=== PATIENT | female | born 1970 | race Caucasian/White ===

== ENCOUNTER 2019-06-27 19:58 | Emergency (ER) | payer OTHER ==
[2019-06-27 20:21] VITALS: BP 131/87
[2019-06-27] MEDS ORDERED: Sulfamethox/Trimethoprim DS 800/160* TAB PO ONE ×2 (20:50→20:51)
--- NOTE | 2019-06-27 20:57 | UC ---
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 - History Of Current Complaint Chief Complaint: UCSkin Stated Complaint: LEFT HAND SWOLLEN/PAIN Time Seen by Provider: 06/27/19 20:32 Hx Obtained From: Patient Onset/Duration: Gradual Onset, Lasting Days Severity Initially: Mild Severity Currently: Moderate Pain Intensity: 7 Pain Scale Used: Adult Non Verbal Character Of Pain: Aching Aggravating Factor(s): Movement Alleviating Factor(s): Rest Associated Signs And Symptoms: Positive: Swelling, Redness, Other - drainage Hands: 1 - open and drain serous fluid, surrounding erthyema, no ascending lymphangiitis, not fluctuance, slight dorsal hand edema - Allergies/Home Medications Allergies/Adverse Reactions: Allergies Allergy/AdvReac Type Severity Reaction Status Date / Time Penicillins Allergy Hives Verified 06/27/19 20:21 environmental Allergy Swelling Uncoded 06/27/19 20:22 Of Face,Lips,& Throat Home Medications: Home Medications Levothyroxine TAB* [Synthroid TAB*] 88 mcg PO 0800 06/27/19 [History Confirmed 06/27/19] PMH/Surg Hx/FS Hx/Imm Hx Previously Healthy: Yes Endocrine History: Thyroid Disease - Surgical History Surgical History: Yes Surgery Procedure, Year, and Place: thyroidectomy. bladder reconstruction - Family History Known Family History: Positive: Hypertension - Social History Alcohol Use: Rare Substance Use Type: None Smoking Status (MU): Never Smoked Tobacco Review of Systems All Other Systems Reviewed And Are Negative: Yes Constitutional: Positive: Negative Skin: Positive: Negative Eyes: Positive: Negative ENT: Positive: Negative Respiratory: Positive: Negative Cardiovascular: Positive: Negative Gastrointestinal: Positive: Negative Genitourinary: Positive: Negative Motor: Positive: Negative Neurovascular: Positive: Negative Musculoskeletal: Positive: Edema - dorsum of left hand and LMF Neurological: Positive: Negative Psychological: Positive: Negative Physical Exam Triage Information Reviewed: Yes Appearance: Well-Appearing, No Pain Distress, Well-Nourished Vital Signs: Initial Vital Signs Temp 98.7 F 06/27/19 20:12 Pulse 55 06/27/19 20:12 Resp 18 06/27/19 20:12 BP 131/87 06/27/19 20:12 Pulse Ox 100 06/27/19 20:12 Eye Exam: Normal ENT: Positive: Hearing grossly normal. Negative: Nasal congestion, Nasal drainage, Trismus, Muffled voice, Hoarse voice Neck: Positive: Supple Respiratory: Positive: Lungs clear, Normal breath sounds, No respiratory distress, No accessory muscle use Cardiovascular: Positive: RRR, No Murmur Musculoskeletal: Positive: Other: - see image Neurological: Positive: Alert Psychological Exam: Normal Skin Exam: Other - see image Hand/Wrist Course/Dx - Differential Dx/Diagnosis Provider Diagnosis: Abscess of left middle finger Discharge ED - Sign-Out/Discharge Documenting (check all that apply): Patient Departure All imaging exams completed and their final reports reviewed: No Studies - Discharge Plan Condition: Stable Disposition: HOME Prescriptions: Sulfamethox/Trimethoprim DS* [Bactrim DS 800/160 TAB*] 1 tab PO BID #14 tab Patient Education Materials: Cellulitis (ED) Referrals: Jeffrey Negrete MD [Primary Care Provider] - 2 Days Additional Instructions: I am concerned you may have a MRSA infection The pustule on your finger has worsened and you now have a cellulitis (skin infection) I did not see any discrete collection of pus to drain A culture is pending take antibiotic with a large glass of water or two when you get home soak your hand in warm soapy water working on your range of motion soak at least 4 x day until better elevate IF THIS WORSENS GO TO THE ER -INCREASED PAIN -FEVER -INCREASED SWELLING -RED STREAK UP ARM If not improved in 48 hours get rechecked you were given a double dose of antibiotic tonight take another double dose in AM then one twice daily until finished - Billing Disposition and Condition Condition: STABLE Disposition: Home
--- NOTE | 2019-06-28 13:51 | UC ---
- Progress Note Progress Note: Reviewed note; suspected pustule at time of I+D of finger abscess and has been started on Bactrim. Please call to confirm that she is MRSA positive, should continue full course of antibiotics, and follow up if she is not improving or symptoms persist. Course/Dx - Diagnoses Provider Diagnoses: Abscess of left middle finger Discharge ED - Sign-Out/Discharge Documenting (check all that apply): Patient Departure All imaging exams completed and their final reports reviewed: No Studies - Discharge Plan Condition: Stable Disposition: HOME Prescriptions: Sulfamethox/Trimethoprim DS* [Bactrim DS 800/160 TAB*] 1 tab PO BID #14 tab Patient Education Materials: Cellulitis (ED) Referrals: Jeffrey Negrtee MD [Primary Care Provider] - 2 Days Additional Instructions: I am concerned you may have a MRSA infection The pustule on your finger has worsened and you now have a cellulitis (skin infection) I did not see any discrete collection of pus to drain A culture is pending take antibiotic with a large glass of water or two when you get home soak your hand in warm soapy water working on your range of motion soak at least 4 x day until better elevate IF THIS WORSENS GO TO THE ER -INCREASED PAIN -FEVER -INCREASED SWELLING -RED STREAK UP ARM If not improved in 48 hours get rechecked you were given a double dose of antibiotic tonight take another double dose in AM then one twice daily until finished - Billing Disposition and Condition Condition: STABLE Disposition: Home
== END 2019-06-27 21:13 | disposition home or self-care (01) ==
LOC: UCCORT 19:58
DX: L02.512 Cutaneous abscess of left hand (principal); E07.9 Disorder of thyroid, unspecified
CPT/HCPCS: 87070; 87077; 87186; 87205; 87640; 87641; 99202; A9270-GY; G0463

== ENCOUNTER 2019-11-10 14:05 | Emergency (ER) | payer OTHER ==
[2019-11-10 14:18] VITALS: BP 131/89
--- NOTE | 2019-11-10 14:42 | UC ---
Throat Pain/Nasal Boris HPI - HPI Summary HPI Summary: 49yo female presenting with sore throat x2 weeks. Patient states tongue is becoming "raw" from all of the lozenges and salt water gargles she has been trying for pain relief. Denies nasal congestion. Notes nonproductive cough that she states is mild and not bothersome compared to throat pain. Denies sob and wheezing. Denies n/v. Denies fever and chills. Patient states she saw pcp 2 weeks ago who told her to take vitamins and treat symptoms. Patient states no relief and has concern for strep throat. - History of Current Complaint Chief Complaint: UCGeneralIllness Stated Complaint: SORE THROAT Hx Obtained From: Patient Pain Intensity: 0 Pain Scale Used: 0-10 Numeric - Allergies/Home Medications Allergies/Adverse Reactions: Allergies Allergy/AdvReac Type Severity Reaction Status Date / Time Penicillins Allergy Hives Verified 11/10/19 14:18 environmental Allergy Swelling Uncoded 11/10/19 14:18 Of Face,Lips,& Throat Home Medications: Home Medications Montelukast Sodium TAB* [Singulair TAB*] 10 mg PO DAILY 11/10/19 [History Confirmed 11/10/19] PMH/Surg Hx/FS Hx/Imm Hx Endocrine History: Hypothyroidism - Surgical History Surgical History: Yes Surgery Procedure, Year, and Place: thyroidectomy. bladder reconstruction. left middle finger - Family History Known Family History: Positive: Hypertension - Social History Alcohol Use: Rare Substance Use Type: None Smoking Status (MU): Never Smoked Tobacco Review of Systems All Other Systems Reviewed And Are Negative: Yes Constitutional: Positive: Negative. Negative: Fever, Chills ENT: Positive: Sore Throat. Negative: Ear Ache, Sinus Congestion Respiratory: Positive: Cough - nonproductive. Negative: Shortness Of Breath Cardiovascular: Positive: Negative Gastrointestinal: Positive: Negative Musculoskeletal: Negative: Myalgia Neurological: Negative: Headache Physical Exam Triage Information Reviewed: Yes Appearance: Well-Appearing, No Pain Distress, Well-Nourished Vital Signs: Initial Vital Signs Temp 98.8 F 11/10/19 14:13 Pulse 61 11/10/19 14:13 Resp 16 11/10/19 14:13 BP 131/89 11/10/19 14:13 Pulse Ox 100 11/10/19 14:13 Lab Results 11/10/19 Range/Units 14:35 Group A Strep Rapid Negative (Negative) Vital Signs Reviewed: Yes Eyes: Positive: Conjunctiva Clear ENT: Positive: Hearing grossly normal, Pharyngeal erythema, TMs normal, Tonsillar swelling, Uvula midline. Negative: Nasal congestion, Nasal drainage, Tonsillar exudate, Trismus, Muffled voice, Hoarse voice Neck exam: Normal Neck: Positive: Supple, Nontender, No Lymphadenopathy Respiratory Exam: Normal Respiratory: Positive: Lungs clear, Normal breath sounds, No respiratory distress. Negative: Crackles, Rhonchi, Stridor, Wheezing Cardiovascular Exam: Normal Cardiovascular: Positive: RRR, No Murmur Neurological: Positive: Alert Psychological: Positive: Age Appropriate Behavior Skin Exam: Normal Throat Pain/Nasal Course/Dx - Course Course Of Treatment: Negative rapid strep test. Discussed viral vs bacterial etiology. I sent throat swab for culture and informed patient that she would be notified only with positive results that warrant treatment. Instructed to follow up with pcp if symptoms persist. Patient voiced understanding and agreed with treatment plan. - Differential Dx/Diagnosis Differential Diagnosis/HQI/PQRI: Pharyngitis, Tonsillitis, URI Provider Diagnosis: Pharyngitis, Acute bronchitis Discharge ED - Sign-Out/Discharge Documenting (check all that apply): Patient Departure All imaging exams completed and their final reports reviewed: No Studies - Discharge Plan Condition: Stable Disposition: HOME Patient Education Materials: Pharyngitis (ED) Referrals: Jeffrey Negrete MD [Primary Care Provider] - If Needed Malachi Rey MD [Medical Doctor] - If Needed Additional Instructions: As discussed, you tested negative for strep throat today. A throat culture was sent and you will be notified with any positive results that warrant treatment. You may take ibuprofen and/or tylenol as directed for fever and pain relief. You may continue to use over the counter throat sprays, lozenges, tea with honey , and salt water gargles for symptomatic relief. Get plenty of rest and fluids. Follow up with your primary care provider if symptoms worsen or do not begin to resolve within 1-2 weeks. - Billing Disposition and Condition Condition: STABLE Disposition: Home
== END 2019-11-10 14:56 | disposition home or self-care (01) ==
LOC: UCCORT 14:05
DX: J02.9 Acute pharyngitis, unspecified (principal); J20.9 Acute bronchitis, unspecified; M79.10 Myalgia, unspecified site; Z88.0 Allergy status to penicillin; Z91.09 Other allergy status, other than to drugs and biological substances
CPT/HCPCS: 87070; 87651; 99211; G0463